=== PATIENT | female | born 1985 | race Caucasian/White ===

== ENCOUNTER 2018-06-17 18:44 | Inpatient (IN) | payer MEDICAID ==
[~2018-06-17] VITALS: Ht 165.1 cm; Wt 127.5 kg
[2018-06-18 04:15] VITALS: BP 127/79
[2018-06-18] MEDS ORDERED: ZOLPIDEM TARTRATE 10 MG TABLET PO PRN (04:15)
[2018-06-18] MEDS ORDERED: LORazepam 2 MG TABLET PO PRN (04:15)
[2018-06-18] MEDS ORDERED: QUEtiapine FUMARATE 100 MG TABLET PO PRN (04:15)
[2018-06-18] MEDS ORDERED: ONDANSETRON HCL 4 MG TABLET PO PRN (05:45)
[2018-06-18] MEDS ORDERED: ALBUTEROL SULFATE HFA 90 MCG/PUFF 8 GM INHALER IH PRN (05:45)
[2018-06-18] MEDS ORDERED: GuaiFENesin/D-METHORPHAN [SUGAR-FREE] 200-20MG/10 ML SYRUP UDCUP PO PRN (05:45)
[2018-06-18] MEDS ORDERED: NICOTINE 14 MG/24 HOUR PATCH TD PRN (05:45)
[2018-06-18] MEDS ORDERED: LOPERAMIDE HCL 2 MG CAPSULE PO PRN (05:45)
[2018-06-18] MEDS ORDERED: MAG HYDROX/AL HYDROX/SIMETH ES 30 ML SUSPENSION UDCUP PO PRN (05:45)
[2018-06-18] MEDS ORDERED: IBUPROFEN 400 MG TABLET PO PRN (05:45)
[2018-06-18] MEDS ORDERED: MAGNESIUM HYDROXIDE SUSPENSION 30 ML UDCUP PO PRN (05:45)
[2018-06-18] MEDS ORDERED: CloNIDine HCL 0.1 MG TABLET PO PRN (05:45)
[2018-06-18] MEDS ORDERED: PETROLATUM,WHITE 71 GM JELLY TP PRN (05:45)
[2018-06-18] MEDS ORDERED: DOCUSATE SODIUM 100 MG CAPSULE PO PRN (05:45)
[2018-06-18] MEDS ORDERED: GLUCAGON,HUMAN RECOMBINANT 1 MG VIAL IM PRN (07:00)
[2018-06-18 08:23] VITALS: BP 120/76
[2018-06-18] MEDS ORDERED: PNEUMOCOCCAL VACCINE POLYVALENT 0.5 ML VIAL [PPSV23] IM ONE (08:45)
[2018-06-18] MEDS ORDERED: PALI234D IM (10:05)
[2018-06-18] MEDS ORDERED: DIPH25 PO (10:05)
[2018-06-18] MEDS: INSULIN LISPRO 100 UNITS/ML SQ PRN ×2 (11:12→21:06)
[2018-06-18 11:14] LABS: GLUCOMETER DEV NAME(LOC) BV2X.; GLUCOSE,POINT OF CARE 189 MG/DL (70-110)
[2018-06-18 16:01] VITALS: BP 141/61
[2018-06-18] MEDS: RisperiDONE 1 MG TABLET PO SCH (16:18)
[2018-06-18 16:55] LABS: GLUCOMETER DEV NAME(LOC) BV2X.; GLUCOSE,POINT OF CARE 119 MG/DL (70-110)
[2018-06-18] MEDS: FLUTICASONE PROPIONATE 50 MCG/SPRAY 16 GM NASAL SPRAY NASAL SCH (20:00)
[2018-06-18 21:09] LABS: GLUCOMETER DEV NAME(LOC) BV2X.; GLUCOSE,POINT OF CARE 165 MG/DL (70-110)
[2018-06-19 02:10] VITALS: BP 129/73
[2018-06-19] MEDS: INSULIN LISPRO 100 UNITS/ML SQ PRN ×3 (07:02→21:37)
[2018-06-19 07:39] LABS: GLUCOMETER DEV NAME(LOC) BV2X.; GLUCOSE,POINT OF CARE 148 MG/DL (70-110)
[2018-06-19 07:51] LABS: APPEARANCE,URINE CLOUDY (CLEAR); BILIRUBIN,URINE NEGATIVE (NEGATIVE); GLUCOSE, URINE (UA) NEGATIVE (NEGATIVE); KETONES,URINE NEGATIVE (NEGATIVE); LEUKOCYTE ESTERASE ,URINE NEGATIVE (NEGATIVE); NITRATE,URINE NEGATIVE (NEGATIVE); OCCULT BLOOD,URINE NEGATIVE (NEGATIVE); PH,URINE 5.5 (5.0-8.0); PROTEIN,URINE NEGATIVE (NEGATIVE); UROBILINOGEN,URINE 0.2 mg/dL (<=1.0)
[2018-06-19 07:56] LABS: AMPHET/METH SCREEN,URINE NEGATIVE (NEGATIVE); BARBITURATE SCREEN, URINE NEGATIVE (NEGATIVE); BENZODIAZEPINES SCREEN,URINE NEGATIVE (NEGATIVE); CANNABINOID SCREEN,URINE NEGATIVE (NEGATIVE); COCAINE SCREEN,URINE NEGATIVE (NEGATIVE); METHADONE SCREEN, URINE NEGATIVE (NEGATIVE); OPIATE SCREEN,URINE NEGATIVE (NEGATIVE)
[2018-06-19 07:57] LABS: PHENCYCLIDINE SCREEN,URINE NEGATIVE (NEGATIVE)
[2018-06-19 08:12] VITALS: BP 105/67
[2018-06-19 08:29] LABS: RBC,URINE 0-2 /HPF (0-2); WBC,URINE 0-2 /HPF (0-5)
[2018-06-19 08:30] LABS: BACTERIA,URINE Few /HPF (None Seen); SQUAMOUS EPITHELIAL CELL,UR Few /LPF (None Seen)
[2018-06-19 08:46] LABS: BASOPHILS % (AUTO) 0.4 % (0.0-2.0); EOSINOPHILS % (AUTO) 4.1 % (1.0-6.0); HEMATOCRIT 38.3 % (36-46); HEMOGLOBIN 12.6 g/dL (12.0-16.0); LYMPHOCYTES # (AUTO) 2.5 K/uL (1.0-4.8); LYMPHOCYTES % (AUTO) 29.4 % (22.0-44.0); MEAN CORPUSCULAR HEMOGLOBIN 29.5 pg (26.0-34.0); MEAN CORPUSCULAR HGB CONC 32.9 G/dL (31.0-37.0); MEAN CORPUSCULAR VOLUME 90 fL (80-100); MONOCYTES # (AUTO) 0.6 K/uL (0.1-1.0); NEUTROPHILS % (AUTO) 59.1 % (40.0-70.0); PLATELET COUNT (AUTO) 230 K/uL (150-450); RED BLOOD CELL COUNT(AUTO) 4.26 MIL/uL (4.00-5.20); RED CELL DISTRIBUTION WIDTH 14.5 % (11.5-14.5)
[2018-06-19 08:57] LABS: ALANINE AMINOTRANSFERASE 39 U/L (12-78); ALKALINE PHOSPHATASE 88 U/L (46-116); ANION GAP 5 mmol/L (8-16); ASPARTATE AMINOTRANSFERASE 26 U/L (15-37); BILIRUBIN,TOTAL 0.2 mg/dL (0.1-1.0); CALCIUM, TOTAL 8.7 mg/dL (8.8-10.5); CARBON DIOXIDE 30 mmol/L (22-29); CHLORIDE 102 mmol/L (98-107); CHOL/HDL RATIO 5.7 (3.9-5.7); CHOLESTEROL 130 mg/dL (131-200); CREATININE 0.62 mg/dL (0.60-1.30); GLOMERULAR FILTR. RATE CALC > 60 mL/min (>60); GLUCOSE,RANDOM 135 mg/dL (70-110); HDL CHOLESTEROL 23 mg/dL (40-60); LDL CHOL (CALC.) 80 mg/dL (0-130); POTASSIUM 3.9 mmol/L (3.5-5.1); SODIUM SERUM 137 mmol/L (136-145); THYROID STIMULATING HORMONE 4.13 uIU/mL (0.36-3.74); TOTAL PROTEIN, SERUM 7.2 g/dL (6.4-8.2); TRIGLYCERIDES 133 mg/dL (15-150); UREA NITROGEN, BLOOD 11 mg/dL (7-18)
[2018-06-19] MEDS: FLUTICASONE PROPIONATE 50 MCG/SPRAY 16 GM NASAL SPRAY NASAL SCH ×2 (09:02→16:01)
[2018-06-19] MEDS: RisperiDONE 1 MG TABLET PO SCH ×2 (09:02→16:01)
[2018-06-19 11:19] LABS: GLUCOMETER DEV NAME(LOC) BV2X.; GLUCOSE,POINT OF CARE 166 MG/DL (70-110)
[2018-06-19 17:04] LABS: GLUCOMETER DEV NAME(LOC) BV2X.; GLUCOSE,POINT OF CARE 117 MG/DL (70-110)
[2018-06-19 17:42] VITALS: BP 138/87
[2018-06-19] MEDS: DiphenhydrAMINE HCL 25 MG CAPSULE PO SCH (20:01)
[2018-06-19] MEDS: TraZODone HCL 100 MG TABLET PO SCH (20:01)
[2018-06-19] MEDS: OXcarbazepine 300 MG TABLET PO SCH (20:01)
[2018-06-19 21:39] LABS: GLUCOMETER DEV NAME(LOC) BV2X.; GLUCOSE,POINT OF CARE 154 MG/DL (70-110)
[2018-06-20 05:32] VITALS: BP 126/80
[2018-06-20] MEDS: LEVOTHYROXINE SODIUM 50 MCG TABLET PO SCH (06:42)
[2018-06-20] MEDS: INSULIN LISPRO 100 UNITS/ML SQ PRN ×2 (07:04→11:20)
[2018-06-20 07:09] LABS: GLUCOMETER DEV NAME(LOC) BV2X.; GLUCOSE,POINT OF CARE 147 MG/DL (70-110)
[2018-06-20 08:09] VITALS: BP 105/60
[2018-06-20] MEDS: RisperiDONE 1 MG TABLET PO SCH ×2 (09:10→16:05)
[2018-06-20] MEDS: FLUTICASONE PROPIONATE 50 MCG/SPRAY 16 GM NASAL SPRAY NASAL SCH ×2 (09:10→16:05)
[2018-06-20 11:29] LABS: GLUCOMETER DEV NAME(LOC) BV2X.; GLUCOSE,POINT OF CARE 144 MG/DL (70-110)
[2018-06-20 16:12] VITALS: BP 138/82
[2018-06-20 17:15] LABS: GLUCOMETER DEV NAME(LOC) BV2X.; GLUCOSE,POINT OF CARE 132 MG/DL (70-110)
[2018-06-20 19:14] VITALS: BP 142/85
[2018-06-20] MEDS: ACETAMINOPHEN 325 MG TABLET PO PRN (19:15)
[2018-06-20] MEDS: OXcarbazepine 300 MG TABLET PO SCH (20:21)
[2018-06-20] MEDS: TraZODone HCL 100 MG TABLET PO SCH (20:21)
[2018-06-20] MEDS: DiphenhydrAMINE HCL 25 MG CAPSULE PO SCH (20:21)
[2018-06-20 22:59] LABS: GLUCOMETER DEV NAME(LOC) BV2X.; GLUCOSE,POINT OF CARE 118 MG/DL (70-110)
[2018-06-21 05:03] VITALS: BP 126/81
[2018-06-21] MEDS: LEVOTHYROXINE SODIUM 50 MCG TABLET PO SCH (05:37)
[2018-06-21 05:56] LABS: GLUCOMETER DEV NAME(LOC) BV2X.; GLUCOSE,POINT OF CARE 145 MG/DL (70-110)
[2018-06-21] MEDS: INSULIN LISPRO 100 UNITS/ML SQ PRN (06:00)
[2018-06-21] MEDS: FLUTICASONE PROPIONATE 50 MCG/SPRAY 16 GM NASAL SPRAY NASAL SCH (08:51)
[2018-06-21] MEDS: RisperiDONE 1 MG TABLET PO SCH (08:51)
[2018-06-21 08:56] VITALS: BP 144/78
[2018-06-21] MEDS ORDERED: OXCA300T29 PO (10:05)
[2018-06-21] MEDS ORDERED: TRAZ150 PO (10:05)
[2018-06-21 11:49] LABS: GLUCOMETER DEV NAME(LOC) BV2X.; GLUCOSE,POINT OF CARE 121 MG/DL (70-110)
[2018-06-21] MEDS: ACETAMINOPHEN 325 MG TABLET PO PRN (12:03)
[2018-06-21] MEDS ORDERED: RISP1 PO (12:38)
[2018-06-21] MEDS ORDERED: DIPH50 PO (12:38)
[2018-06-21] MEDS ORDERED: LEVO50 PO (12:38)
[2018-06-21] MEDS ORDERED: FLUT16H NASAL (12:38)
== END 2018-06-21 14:00 | disposition home or self-care (01) | DRG 750 ==
LOC: B2S 06-18 04:09
PROVIDERS: ADMIT Psychiatry & Neurology Child & Adolescent Psychiatry; ATTEND Psychiatry & Neurology Child & Adolescent Psychiatry
PROC: 3E0234Z Introduction of Serum, Toxoid and Vaccine into Muscle, Percutaneous Approach (ICD-10-PCS; principal; 2018-06-18)
DX: F20.9 Schizophrenia, unspecified (principal); F10.10 Alcohol abuse, uncomplicated; F17.200 Nicotine dependence, unspecified, uncomplicated; J30.9 Allergic rhinitis, unspecified; F32.9 Major depressive disorder, single episode, unspecified; F41.9 Anxiety disorder, unspecified; R73.9 Hyperglycemia, unspecified; Z91.018 Allergy to other foods; Z71.6 Tobacco abuse counseling; Z72.89 Other problems related to lifestyle; Z71.41 Alcohol abuse counseling and surveillance of alcoholic; Z23 Encounter for immunization
CPT/HCPCS: 80307; 83036; 84439; 84443; 90732